=== PATIENT | male | born 1960 | race African-American/Black ===

== ENCOUNTER 2022-09-16 21:06 | Inpatient (IN) | payer OTHER ==
[2022-09-16 21:38] VITALS: RESP 18; BMI 25.0
[2022-09-17] MEDS ORDERED: guaiFENesin 200 MG/10 ML 10 ML UNIT-DOSE CUPS PO PRN (00:03)
[2022-09-17] MEDS ORDERED: IBUPROFEN 400 MG TABLET (FP) PO PRN (00:03)
[2022-09-17] MEDS ORDERED: ACETAMINOPHEN 325 MG TABLET (FP) PO PRN (00:03)
[2022-09-17] MEDS ORDERED: MAGNESIUM CITRATE 300 ML BOTTLE PO PRN (00:03)
[2022-09-17] MEDS ORDERED: MAGNESIUM HYDROX 2400MG/30ML ORAL SUSPENSION 30 ML CUP PO PRN (00:03)
[2022-09-17] MEDS ORDERED: MAG HYDROX/AL HYDROX/SIMETH 30 ML UNIT-DOSE CUP PO PRN (00:03)
[2022-09-17] MEDS ORDERED: LOPERAMIDE HCL 2 MG CAPSULE PO PRN (00:03)
[2022-09-17] MEDS ORDERED: P-EPHED 60MG/TRIPROLIDI 2.5MG TABLET PO PRN (00:03)
[2022-09-17 08:57] LABS: URINE APPEARANCE CLEAR; URINE BILIRUBIN NEGATIVE (NEGATIVE); URINE COLOR YELLOW; URINE GLUCOSE (UA) NEGATIVE (NEGATIVE); URINE KETONE NEGATIVE (NEGATIVE); URINE LEUK ESTERASE NEGATIVE (NEGATIVE); URINE NITRITE NEGATIVE (NEGATIVE); URINE PROTEIN NEGATIVE (NEGATIVE); URINE UROBILINOGEN 0.2 mg/dL (0.2-1.0)
[2022-09-17] MEDS: PRENATAL VITAMINS W/ FOLIC ACID TABLET (FP) PO SCH (10:24)
[2022-09-17] MEDS: ARIPiprazole 10 MG TABLET PO SCH (10:25)
[2022-09-17] MEDS: chlorproMAZINE HCL 100 MG TABLET PO SCH ×2 (12:24→21:40)
[2022-09-17] MEDS: traZODone HCL 50 MG TABLET (FP) PO SCH (21:40)
[2022-09-17] MEDS: THIAMINE HCL 100 MG TABLET (FP) PO SCH (21:41)
[2022-09-17] MEDS ORDERED: MELATONIN 5 MG TABLETS PO SCH (22:00)
[2022-09-17] MEDS ORDERED: traZODone HCL 50 MG TABLET (FP) PO SCH (22:00)
[2022-09-18] MEDS: chlorproMAZINE HCL 100 MG TABLET PO SCH ×2 (09:22→21:09)
[2022-09-18] MEDS: PRENATAL VITAMINS W/ FOLIC ACID TABLET (FP) PO SCH (09:22)
[2022-09-18] MEDS: ARIPiprazole 10 MG TABLET PO SCH (09:22)
[2022-09-18 09:58] LABS: CALCIUM 9.1 mg/dL (8.5-10.1); HEMATOCRIT 42.9 % (35.4-49); HEMOGLOBIN 14.4 GM/dL (11.7-16.9); MCH 32.4 pg (25.7-33.7); MCHC 33.5 g/dl (32.0-35.9); MEAN CELL VOLUME 96.8 fl (80-96); MEAN PLT VOLUME 9.6 fl (7.5-11.1); PLATELET COUNT 236 10^3/uL (134-434); RBC 4.44 M/mm3 (4.00-5.60); RDW 13.1 % (11.9-15.9); WHITE BLOOD COUNT 4.8 K/mm3 (4.0-10.0)
[2022-09-18 09:59] LABS: ALBUMIN 3.3 g/dl (3.4-5.0); BLOOD UREA NITROGEN 15.7 mg/dL (7-18)
[2022-09-18 10:02] LABS: CREATININE 1.1 mg/dL (0.55-1.3)
[2022-09-18 10:04] LABS: BILIRUBIN,TOTAL 0.4 mg/dL (0.2-1); TOT PROT 7.7 g/dl (6.4-8.2)
[2022-09-18] MEDS: traZODone HCL 50 MG TABLET (FP) PO SCH (21:09)
[2022-09-18] MEDS: THIAMINE HCL 100 MG TABLET (FP) PO SCH (21:09)
[2022-09-19] MEDS: PRENATAL VITAMINS W/ FOLIC ACID TABLET (FP) PO SCH (10:24)
[2022-09-19] MEDS: chlorproMAZINE HCL 100 MG TABLET PO SCH ×2 (10:24→21:25)
[2022-09-19] MEDS: ARIPiprazole 10 MG TABLET PO SCH (10:24)
[2022-09-19] MEDS: THIAMINE HCL 100 MG TABLET (FP) PO SCH (21:24)
[2022-09-19] MEDS: traZODone HCL 50 MG TABLET (FP) PO SCH (21:24)
[2022-09-20 10:01] VITALS: BP 131/75; PULSE 83; TEMP 97.3
[2022-09-20] MEDS: ARIPiprazole 10 MG TABLET PO SCH (10:50)
[2022-09-20] MEDS: PRENATAL VITAMINS W/ FOLIC ACID TABLET (FP) PO SCH (10:50)
[2022-09-20] MEDS: chlorproMAZINE HCL 100 MG TABLET PO SCH (10:51)
== END 2022-09-20 22:25 | disposition short-term general hospital (02) | DRG 772 ==
LOC: YASAS 21:06 → Y3W 09-17 01:11
PROVIDERS: ADMIT Allergy & Immunology; ATTEND Internal Medicine
PROC: HZ42ZZZ Group Counseling for Substance Abuse Treatment, Cognitive-Behavioral (ICD-10-PCS; principal; 2022-09-17)
DX: F14.20 Cocaine dependence, uncomplicated (principal); F17.210 Nicotine dependence, cigarettes, uncomplicated; F19.280 Other psychoactive substance dependence with psychoactive substance-induced anxiety disorder; F19.282 Other psychoactive substance dependence with psychoactive substance-induced sleep disorder; F19.24 Other psychoactive substance dependence with psychoactive substance-induced mood disorder; F31.9 Bipolar disorder, unspecified; F20.9 Schizophrenia, unspecified; F43.10 Post-traumatic stress disorder, unspecified; G45.9 Transient cerebral ischemic attack, unspecified; I69.854 Hemiplegia and hemiparesis following other cerebrovascular disease affecting left non-dominant side; H53.8 Other visual disturbances; H33.22 Serous retinal detachment, left eye; R10.13 Epigastric pain; W19.XXXA Unspecified fall, initial encounter; Y93.89 Activity, other specified; Y92.230 Patient room in hospital as the place of occurrence of the external cause; Z59.01 Sheltered homelessness; Z56.0 Unemployment, unspecified
CPT/HCPCS: 36415; 71046-TC-FY; 80053; 81003; 82962; 85027; 86593; 86780; 93005; 93010; C9803-CS; U0003; U0005

== ENCOUNTER 2022-09-20 10:37 | Observation (INO) | payer OTHER ==
[2022-09-20 10:46] VITALS: BMI 25.0
[2022-09-20] MEDS ORDERED: ASPIRIN 325 MG TABLET PO ONE (13:12)
[2022-09-20] MEDS ORDERED: ASPIRIN 325 MG TABLET ONE (13:23)
[2022-09-20 15:11] LABS: BASO % 0.4 % (0-2.0); EOS % 1.8 % (0-4.5); HEMATOCRIT 43.1 % (35.4-49); HEMOGLOBIN 14.4 GM/dL (11.7-16.9); LYMPH % 24.1 % (8-40); MCH 32.2 pg (25.7-33.7); MCHC 33.4 g/dl (32.0-35.9); MEAN CELL VOLUME 96.3 fl (80-96); MEAN PLT VOLUME 9.3 fl (7.5-11.1); MONO % 13.1 % (3.8-10.2); NEUT % 60.6 % (42.8-82.8); PLATELET COUNT 228 10^3/uL (134-434); RBC 4.47 M/mm3 (4.00-5.60); RDW 12.9 % (11.9-15.9); WHITE BLOOD COUNT 4.7 K/mm3 (4.0-10.0)
[2022-09-20 15:18] LABS: INR 0.87 (0.83-1.09)
[2022-09-20 15:20] LABS: ACTIVATED PTT 27.8 SECONDS (25.2-36.5)
[2022-09-20 15:28] LABS: PH,URINE 6.5 (5.0-8.0); URINE APPEARANCE CLEAR; URINE BILIRUBIN NEGATIVE (NEGATIVE); URINE COLOR YELLOW; URINE GLUCOSE (UA) NEGATIVE (NEGATIVE); URINE KETONE NEGATIVE (NEGATIVE); URINE LEUK ESTERASE NEGATIVE (NEGATIVE); URINE NITRITE NEGATIVE (NEGATIVE); URINE PROTEIN NEGATIVE (NEGATIVE); URINE UROBILINOGEN 0.2 mg/dL (0.2-1.0)
[2022-09-20 15:37] LABS: CALCIUM 9.9 mg/dL (8.5-10.1); MAGNESIUM 2.1 mg/dL (1.8-2.4)
[2022-09-20 15:38] LABS: BLOOD UREA NITROGEN 13.1 mg/dL (7-18)
[2022-09-20 15:39] LABS: ALBUMIN 3.6 g/dl (3.4-5.0)
[2022-09-20 15:41] LABS: CREATININE 1.1 mg/dL (0.55-1.3)
[2022-09-20 15:42] LABS: TOT PROT 7.8 g/dl (6.4-8.2)
[2022-09-20 15:43] LABS: BILIRUBIN,TOTAL 0.3 mg/dL (0.2-1)
[2022-09-21 01:49] VITALS: RESP 18
[2022-09-21 07:46] LABS: BASO % 0.5 % (0-2.0); EOS % 2.2 % (0-4.5); HEMATOCRIT 41.7 % (35.4-49); LYMPH % 25.4 % (8-40); MCH 31.9 pg (25.7-33.7); MCHC 33.6 g/dl (32.0-35.9); MEAN CELL VOLUME 95.2 fl (80-96); MEAN PLT VOLUME 9.6 fl (7.5-11.1); MONO % 14.1 % (3.8-10.2); NEUT % 57.8 % (42.8-82.8); PLATELET COUNT 216 10^3/uL (134-434); RBC 4.38 M/mm3 (4.00-5.60); RDW 13.1 % (11.9-15.9); WHITE BLOOD COUNT 4.5 K/mm3 (4.0-10.0)
[2022-09-21 08:04] LABS: ALBUMIN 3.2 g/dl (3.4-5.0); CALCIUM 9.3 mg/dL (8.5-10.1); MAGNESIUM 1.9 mg/dL (1.8-2.4)
[2022-09-21 08:07] LABS: CREATININE 1.2 mg/dL (0.55-1.3); PHOSPHOROUS 4.1 mg/dL (2.5-4.9)
[2022-09-21 08:09] LABS: BILIRUBIN,TOTAL 0.6 mg/dL (0.2-1); TOT PROT 7.1 g/dl (6.4-8.2)
[2022-09-21 09:48] VITALS: BP 101/60; PULSE 69; TEMP 98.2
== END 2022-09-21 13:17 | disposition other institution (70) ==
LOC: JER 10:37 → JERBED 12:32 → J4S 19:51
PROVIDERS: ADMIT Internal Medicine; ATTEND Internal Medicine
DX: Z04.3 Encounter for examination and observation following other accident (principal); F10.99 Alcohol use, unspecified with unspecified alcohol-induced disorder; F14.10 Cocaine abuse, uncomplicated; F11.90 Opioid use, unspecified, uncomplicated; M62.81 Muscle weakness (generalized); G45.8 Other transient cerebral ischemic attacks and related syndromes; Z86.16 Personal history of COVID-19; Z86.69 Personal history of other diseases of the nervous system and sense organs; Z87.898 Personal history of other specified conditions; Z29.8 Encounter for other specified prophylactic measures; W18.39XA Other fall on same level, initial encounter; Y93.89 Activity, other specified; Y92.238 Other place in hospital as the place of occurrence of the external cause; Z88.8 Allergy status to other drugs, medicaments and biological substances; Z91.018 Allergy to other foods; F17.210 Nicotine dependence, cigarettes, uncomplicated
CPT/HCPCS: 0241U-QW; 36415; 70450-TC; 71045-TC-FY; 72125-TC; 80053; 80061; 80307; 81003; 83036; 83735; 84100; 84484; 85025; 85610; 85730; 86850; 86900; 86901; 93005; 93010; 93880-TC; 99285-25; G0378